=== PATIENT | male | born 2000 ===

== ENCOUNTER 2025-03-30 11:36 | Emergency (ER) | payer OTHER ==
[~2025-03-30] VITALS: Ht 170.2 cm; Wt 142.9 kg
[2025-03-30 11:36] VITALS: BP 166/95; PULSE 85; RESP 18; TEMP 98.4; O2SAT 98
[2025-03-30 12:23] LABS: BASOPHIL # 0.1 10^3/uL (0.0-0.1); BASOPHIL % 0.6 % (0.2-1.2); EOSINOPHIL # 0.2 10^3/uL (0.0-0.2); EOSINOPHIL % 2.0 % (0.0-5.0); HEMATOCRIT(ML) 47.3 % (37.0-53.0); IG % 0.20 % (0.00-0.50); LYMPHOCYTES # 2.53 10^3/uL1 (1.0-4.8); LYMPHOCYTES % 29.3 % (24.0-44.0); MEAN CORP HGB 27.8 pg (26-34); MEAN CORP HGB CONCENTRATION 33.8 g/dL (33-36.5); MEAN CORP VOLUME 82.3 fL (78-100); MONOCYTES # 0.6 10^3/uL (0.3-0.8); MONOCYTES % 6.7 % (5.0-12.0); NEUTROPHIL # 5.3 10^3/uL (1.8-7.7); NEUTROPHILS % 61.2 % (41.0-85.0); RED BLOOD CELL 5.75 10^6/uL (4.50-5.90); RED CELL DISTRIBUTION WIDTH 13.1 % (11.5-14.5); WHITE BLOOD CELL 8.6 10^3/uL (4.5-11.0)
[2025-03-30 12:40] LABS: INR 1.0; PROTHROMBIN PROTIME 10.2 SEC (9.3-11.6)
[2025-03-30 12:43] LABS: ALANINE AMINOTRANSFERASE(ML) 51.0 U/L (12-78); ALBUMIN(ML) 3.9 g/dL (3.4-5.0); CREATININE SERUM 1.25 mg/dL (0.59-1.40); EST GFR, NON-AA 71.0 (>/=60); TROPONIN I HIGH SENSITIVITY 6.0 ng/L (0-75)
[2025-03-30 12:45] VITALS: BP 179/69; PULSE 68; RESP 18; TEMP 98.4; O2SAT 98
[2025-03-30 13:14] VITALS: BP 179/69; PULSE 68; RESP 18; TEMP 98.4; O2SAT 98
== END 2025-03-30 13:17 | disposition home or self-care (01) ==
LOC: ER 11:36
DX: R42 Dizziness and giddiness (principal); F17.200 Nicotine dependence, unspecified, uncomplicated; Z79.01 Long term (current) use of anticoagulants
CPT/HCPCS: 36415; 80053; 84484; 85025; 85610; 85730; 93005; 99284